=== PATIENT | male | born 2005 | race African-American/Black ===

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

== ENCOUNTER 2025-06-21 08:39 | Emergency (ER) | payer MEDICAID, OTHER ==
[~2025-06-21] VITALS: Ht 172.7 cm; Wt 78.4 kg
[2025-06-21 08:40] VITALS: BP 138/91; PULSE 52; RESP 18; TEMP 98.3; O2SAT 99
--- NOTE | 2025-06-21 08:50 | ED.PDOC ---
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 He denies any past medical history. He did have his tooth extracted on the this month. He is taking pain medications. The pain started few days after he started pain medications. De nies shortness a breath. Denies any other symptoms. Chief Complaint: Chest Pain Time Seen by MD: 08:43 Reviewed Notes: Nurses Notes, Medications, Allergies Allergies: Coded Allergies: NO KNOWN ALLERGIES (Unverified , 06/21/25) Information Source: Patient Mode of Arrival: Ambulatory Severity: Mild Timing: Hours Duration: Since onset Past Medical History PAST MEDICAL HISTORY: Denies Surgical History: Denies all surgeries Social History Smoker: Non-Smoker Alcohol: Denies ETOH Use Drugs: Denies Drug Use Constitutional: denies: chills, diaphoresis, fatigue, fever, malaise, sweats, weakness, others EENTM: denies: blurred vision, double vision, ear bleeding, ear discharge, ear drainage, ear pain, ear ringing, eye pain, eye redness, hearing loss, mouth pain, mouth swelling, nasal discharge, nose bleeding, nose congestion, nose pain, photophobia, tearing, throat pain, throat swelling, voice changes, others Respiratory: denies: cough, hemoptysis, orthopnea, SOB at rest, shortness of breath, SOB with excertion, stridor, wheezing, others Cardiovascular: reports: chest pain; denies: dizzy spells, diaphoresis, Dyspnea on exertion, edema, irregular heart beat, left arm pain, lightheadedness, palpitations, PND, syncope, others Gastrointestinal: denies: abdomen distended, abdominal pain, blood streaked bowels, constipated, diarrhea, dysphagia, difficulty swallowing, hematemesis, melena, nausea, poor appetite, poor fluid intake, rectal bleeding, rectal pain, vomiting, others Genitourinary: denies: burning, dysuria, flank pain, frequency, hematuria, incontinence, penile discharge, penile sore, pain, testicle pain, testicle swelling, urgency, others Neurological: denies: dizziness, fainting, headache, left sided numbness, left sided weakness, numbness, paresthesia, pre-existing deficit, right sided numbness, right sided weakness, seizure, speech problems, tingling, tremors, weakness, others Musculoskeletal: denies: back pain, gout, joint pain, joint swelling, muscle pain, muscle stiffness, neck pain, others Integumetry: denies: bruises, change in color, change in hair/nails, dryness, laceration, lesions, lumps, rash, wounds, others Allergic/Immunocompromised: denies: Difficulty Healing, Frequent Infections, Hives, Itching, others Hematologic/Lymphatic: denies: anemia, blood clots, easy bleeding, easy bruising, swollen glands, others Endocrine: denies: excessive hunger, excessive sweating, excessive thirst, excessive urination, flushing, intolerance to cold, intolerance to heat, unexplained weight gain, unexplained weight loss, others Psychiatric: denies: anxiety, bipolar disorder, depression, hopeless, panic disorder, schizophrenia, sleepless, suicidal, others Physical Exam General Appearance: Moderate Distress HEENT: Normal ENT Inspection, Pharynx Normal, TMs Normal Neck: Full Range of Motion, Non-Tender, Normal, Normal Inspection Respiratory: Chest Non-Tender, Lungs Clear, No Accessory Muscle Use, No Respiratory Distress, Normal Breath Sounds Cardiovascular: No Edema, No JVD, No Murmur, No Gallop, Normal Peripheral Pulses, Regular Rate/Rhythm Breast Exam: Deferred Gastrointestinal: No Organomegaly, Non Tender, No Pulsatile Mass, Normal Bowel Sounds, Soft Genitalia: Deferred Pelvic: Deferred Rectal: Deferred Extremities: No calf tenderness, Normal capillary refill, Normal inspection, Normal range of motion, Non-tender, No pedal edema Musculoskeletal : Apperance: Normal Neurologic: Alert, 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 Was a procedure done?: No EKG EKG : Cardiac Rhythm: NSR Differential Dx Considerations may include: Musculoskeletal pain Anxiety X-Ray, Labs, Meds, VS Vital Signs Date Time Temp Pulse Resp B/P (MAP) Pulse Ox O2 Delivery O2 Flow Rate FiO2 06/21/25 08:40 98.3 52 18 138/91 99 98.3 Patient alert. Complaining of chest pain. Vitals stable. Answering questions. EKG reviewed does not show any acute changes. No leg swelling. No shortness a breath. No sign distress. Explained to the patient. Was told follow up with his primary care physician. Was told to come back if there is any problem. Time of 1ST Reevaluation: 08:48 Reevaluation 1ST: Improved Patient Education/Counseling: Diagnosis, Treatment, Prognosis, Need For Follow Up Family Education/Counseling: No Family Present SEPSIS Sepsis Screen Physician Orders Troponin-I Hs (06/21/25 08:49) Troponin-I Hs (06/21/25 09:49) Troponin-I Hs (06/21/25 11:49) Pantoprazole Tablet (Protonix Tablet) (06/21/25 09:00) Troponin-I Hs (06/21/25 08:50) Vital Signs Date Time Temp Pulse Resp B/P (MAP) Pulse Ox O2 Delivery O2 Flow Rate FiO2 06/21/25 08:40 98.3 52 18 138/91 99 98.3 Departure 1 Departure Time of Disposition: 08:49 Impression: Primary Impression: Musculoskeletal chest pain Disposition: 01 HOME / SELF CARE / HOMELESS Condition: Good Discharged With: Self Critical Care Note Critical Care Time?: No Stability Stability form required: No Heart Score Heart Score: Heart Score Response (Comments) Value History Slightly Suspicious 0 EKG Normal 0 Age <45 0 Risk Factors No known risk factors 0 Troponin Normal limit 0 Total 0 I personally scribed for TAZ CONTRERAS MD ([email or web address]) on 06/21/25 at 08:51. Electronically submitted by Simran Moser ([email or web address]). TAZ CONTRERAS MD Jun 21, 2025 08:50
--- NOTE | 2025-06-21 08:51 | ECG ---
[facility] Test Date: 2025-06-21 Test Time: 08:38:49 Pat Name: ANTOINE SNOW Department: ED Room: Gender: M Senior Auditor: richard : 2005 Requested By: TAZ CONTRERAS Order Number: [id number] Reading MD: Zack Wolf Measurements Intervals [place] Rate: 53 P: 23 MD: 195 QRS: 80 QRSD: 88 T: 42 QT: 434 QTc: 408 Interpretive Statements Sinus rhythm Abnormal Q suggests anterior infarct ST elev, probable normal early repol pattern Electronically Signed On 06-21-2025 23:00:15 PDT by Zack Wolf Please click the below link to view image of tracing.
[2025-06-21] MEDS: PANTOPRAZOLE 40 MG TAB PO ONE (09:27)
== END 2025-06-21 11:05 | disposition home or self-care (01) ==
LOC: ER 08:39
DX: R07.89 Other chest pain (principal)
CPT/HCPCS: 36415; 84484; 93005